=== PATIENT | male | born 1950 | race Caucasian/White ===

== ENCOUNTER 2023-01-19 12:44 | Emergency (ER) | payer MEDICARE ==
[2023-01-19] MEDS ORDERED: HYDROmorphone 0.5 MG/0.5 ML Syringe IVPUSH ONE (13:40)
[2023-01-19] MEDS ORDERED: Sodium Chloride 0.9% 1,000 ML IV STA (13:40)
[2023-01-19] MEDS ORDERED: Ondansetron 4 MG/2 ML SDV IVPUSH ONE (13:40)
[2023-01-19 13:57] LABS: CORONAVIRUS COVID-19 NAA POSITIVE (NEGATIVE)
== END 2023-01-19 16:20 | disposition home or self-care (01) ==
LOC: JD.ED 12:44
DX: U07.1 COVID-19 (principal); R31.9 Hematuria, unspecified; I10 Essential (primary) hypertension; E11.9 Type 2 diabetes mellitus without complications; Z79.4 Long term (current) use of insulin; Z79.899 Other long term (current) drug therapy
CPT/HCPCS: 0240U; 36415; 74176; 80053; 81001; 85025; 86140; 87086; 96361; 96374; 96375; 99284; J1170; J2405; J7030; 87088; 87186

== ENCOUNTER 2024-12-07 08:36 | Emergency (ER) | payer MEDICARE, OTHER ==
[2024-12-07] MEDS: Furosemide 20 MG/2 ML VIAL IVPUSH ONE ×2 (09:17→10:35)
[2024-12-07 09:23] LABS: BASOPHILS ABSOLUTE AUTO 0.1 K/mm3 (0.0-0.2); BASOPHILS PERCENT AUTO 0.6 % (0.0-1.0); EOSINOPHILS ABSOLUTE AUTO 0.5 K/mm3 (0.0-0.4); EOSINOPHILS PERCENT AUTO 4.6 % (0.0-6.0); HEMATOCRIT 28.3 % (42.0-52.0); HEMOGLOBIN 8.4 gm/dl (14.0-18.0); IMMATURE GRAN ABSOLUTE AUTO 0.05 K/mm3 (0.00-0.05); IMMATURE GRAN PERCENT AUTO 0.5 % (0.0-0.4); LYMPHOCYTES ABSOLUTE AUTO 1.5 K/mm3 (1.0-4.8); LYMPHOCYTES PERCENT AUTO 15.3 % (24.0-44.0); MEAN CORPUSCULAR HEMOGLOBIN 29.8 pg (28.0-32.0); MEAN CORPUSCULAR HGB CONC 29.7 g/dl (32.0-36.0); MEAN CORPUSCULAR VOLUME 100.4 fl (83.0-99.0); MEAN PLATELET VOLUME 9.1 fl (9.4-12.4); MONOCYTES ABSOLUTE AUTO 0.7 K/mm3 (0.0-0.8); MONOCYTES PERCENT AUTO 7.2 % (0.0-8.0); NEUTROPHILS ABSOLUTE AUTO 7.1 K/mm3 (1.8-7.7); NEUTROPHILS PERCENT AUTO 71.8 % (41.0-71.0); PLATELET COUNT,PLT 221 K/mm3 (150-400); RED BLOOD CELL COUNT 2.82 M/mm3 (4.52-5.90); WHITE BLOOD CELL COUNT,WBC 9.95 K/mm3 (3.9-11.3)
[2024-12-07] MEDS: Albuterol/Ipratropium 3.0-0.5 MG/3 ML Neb Soln NEB ONE (09:30)
[2024-12-07 09:48] LABS: A/G RATIO 0.8 (1-2); ALBUMIN 2.8 g/dl (3.4-5.0); BILIRUBIN TOTAL 0.6 mg/dL (0.2-1.0); CALCIUM 8.9 mg/dL (8.5-10.1); EST CRCL DRUG DOSING (CG) 31.83 mL/min; PROTEIN TOTAL,TP 6.4 g/dl (6.4-8.2)
[2024-12-07] MEDS: Sodium Chloride 0.9% 100 ML IV SCH (10:18)
[2024-12-07] MEDS: Iopamidol 755 Mg/ML 100 ML Bottle IVPUSH ONE (10:18)
[2024-12-07] MEDS: Sodium Chloride 0.9% 10 ML Syringe FLUSH PRN (10:18)
[2024-12-07] MEDS: Nystatin Topical Powder 15 GM Bottle TOP ONE (10:40)
[2024-12-07 10:43] LABS: FOLIC ACID 29.3 ng/mL (8.6-58.9)
== END 2024-12-07 13:00 | disposition left against medical advice (07) ==
LOC: JD.ED 08:36
DX: I13.0 Hypertensive heart and chronic kidney disease with heart failure and stage 1 through stage 4 chronic kidney disease, or unspecified chronic kidney disease (principal); I50.9 Heart failure, unspecified; N18.9 Chronic kidney disease, unspecified; J44.9 Chronic obstructive pulmonary disease, unspecified; B37.2 Candidiasis of skin and nail; E11.22 Type 2 diabetes mellitus with diabetic chronic kidney disease; Z86.16 Personal history of COVID-19; Z87.891 Personal history of nicotine dependence; Z79.899 Other long term (current) drug therapy; Z79.4 Long term (current) use of insulin
CPT/HCPCS: 36415; 71046; 71275; 80053; 82607; 82746; 83880; 84484; 85025; 85379; 87428; 93005; 94640; 96374; 96376; 99285; A9270; J1940; Q9967; 93010; J7620-GY